=== PATIENT | female | born 1950 | race Caucasian/White ===

== ENCOUNTER 2019-12-27 10:42 | Emergency (ER) | payer MEDICARE, OTHER ==
[2019-12-27] MEDS ORDERED: Sodium Chloride 0.9% 1,000 ML IV ONE (11:25)
[2019-12-27] MEDS ORDERED: Ketorolac 30 MG/ML SDV IVPUSH ONE (11:25)
[2019-12-27] MEDS: Sodium Chloride 0.9% 10 ML Syringe FLUSH PRN ×2 (11:31→12:10)
--- NOTE | 2019-12-27 11:31 | EDM.PDOC ---
ED HPI GENERAL MEDICAL PROBLEM - General Chief Complaint: Abdominal Pain Stated Complaint: ABDOMINAL PAIN,FEVER Time Seen by Provider: 12/27/19 11:20 Source of Information: Reports: Patient History Limitations: Reports: No Limitations - History of Present Illness INITIAL COMMENTS - FREE TEXT/NARRATIVE: Nancie is a 69 year old female, presents to the ED with progressive lower a bdominal pain. Patient reports lower mid to left abdominal pain, nausea, which that has resolved. Pain improved with Aleve, worse when lying on her side. Patient also endorses a fever, has not taken anything for pain/fever today. Patient denies any urinary symptoms, does complain of lower back pain. Patient denies any hx of this in the past. Has had appendectomy. Hx of colonoscopies, states last one looked so good she just did the cologaurd. Denies any known hx of diverticulosis. Patient denies any blood in stool however stools have had more gas and mucus. Onset: Gradual Duration: Day(s): (3) Abdominal Pain Score (Numeric/FACES): 2 - Related Data Allergies Allergy/AdvReac Type Severity Reaction Status Date / Time Sulfa (Sulfonamide Allergy Hives Verified 12/27/19 11:08 Antibiotics) bacitracin AdvReac Other Verified 12/27/19 11:08 Home Meds: Home Meds Calcium Carbonate [Calcium] 1 tab PO DAILY 12/27/19 [History] Fexofenadine [Natacha] 0 mg PO DAILY 12/27/19 [History] Fluticasone Furoate [Flonase Sensimist] 2 spray RAHEEM DAILY 12/27/19 [History] Ketotifen Fumarate [Zaditor] 1 drop EYEBOTH DAILY 12/27/19 [History] Multivitamin [Multivitamins] 1 cap PO DAILY 12/27/19 [History] Past Medical History HEENT History: Reports: Cataract Respiratory History: Reports: Asthma RESPIRATORY SUPPORT TECHNICIAN History: Reports: - Past Surgical History HEENT Surgical History: Reports: Cataract Surgery, Tonsillectomy GI Surgical History: Reports: Appendectomy Social & Family History - Tobacco Use Smoking Status *Q: Never Smoker - Caffeine Use Caffeine Use: Reports: Coffee - Alcohol Use Days Per Week of Alcohol Use: 7 Number of Drinks Per Day: 2 Total Drinks Per Week: 14 - Recreational Drug Use Recreational Drug Use: No ED ROS GENERAL - Review of Systems Review Of Systems: Comprehensive ROS is negative, except as noted in HPI. ED EXAM, GI/ABD - Physical Exam Exam: See Below Exam Limited By: No Limitations General Appearance: Alert, WD/WN, No Apparent Distress Ears: Normal External Exam Nose: Normal Inspection Throat/Mouth: Normal Inspection Head: Atraumatic Neck: Normal Inspection, Supple Respiratory/Chest: No Respiratory Distress, Lungs Clear Cardiovascular: Normal Peripheral Pulses, Tachycardia GI/Abdominal Exam: Normal Bowel Sounds, Soft, Tender (lower mid and LLQ, no gaurding or rebound) Back Exam: Normal Inspection, Full Range of Motion Extremities: Normal Inspection Neurological: Alert, Oriented, CN II-XII Intact Psychiatric: Normal Affect, Normal Mood Skin Exam: Warm Lymphatic: No Adenopathy Course - Vital Signs Last Recorded V/S: Last Vital Signs Temp 37.3 C 12/27/19 11:11 Pulse 93 12/27/19 12:25 Resp 16 12/27/19 12:25 BP 155/72 H 12/27/19 12:25 Pulse Ox 97 12/27/19 12:25 Nancie is a 69 year old female who presents to the ED today with c/o lower mid and left abdominal pain. Please refer to HPI and focused exam. Concern given exam and history for acute diverticulitis. IV established. Blood work obtained including blood cultures and lactic acid secondary to tachycardia and reported fever. White count returns elevated at 15.1, lactic acid is 0.9, Sodium is 137, renal function stable, liver function stable, C reactive protein is elevated as well. Patient given IV Toradol here with improvement in her symptoms. CT scan of abdomen/pelvis obtained, confirms acute uncomplicated diverticulitis of the sigmoid colon. Incidentally noted is a 0.6 cm enhancing lesion of the uncinate process of the pancreas. Patient updated on CT scan and blood work, will discharged home on Cipro/Flagyl. Aleve/Ibuprofen/Tylenol for pain as needed per bottle instructions. [place] for severe pain, do not exceed more than 4,000 mg of Tylenol in a 24 hour period. Patient can follow up with PCP in one week, will need to follow up with regard to pancreatic lesion and colonoscopy recommended as well. Colace PRN. Reasons to return to the ED discussed, patient agreeable to plan of care and discharged in stable condition. - Orders/Labs/Meds Orders: Active Orders 24 hr Category Date Time Status Peripheral IV Care [RC] . DIRECTED Care 12/27/19 11:23 Active CULTURE BLOOD [BC] Urgent Lab 12/27/19 11:36 Received UA W/MICROSCOPIC [URIN] Stat Lab 12/27/19 11:25 Ordered Sodium Chloride 0.9% [Normal Saline] 76 ml Med 12/27/19 12:00 Active IV ASDIRECTED Sodium Chloride 0.9% [Saline Flush] Med 12/27/19 11:23 Active 10 ml FLUSH ASDIRECTED PRN Blood Culture x2 Reflex Set [OM.PC] Urgent Oth 12/27/19 11:23 Ordered Peripheral IV Insertion Adult [OM.PC] Routine Oth 12/27/19 11:23 Ordered Medication Orders Sodium Chloride (Normal Saline) 76 mls @ 3.5 mls/sec IV ASDIRECTED GERARD Last Admin: 12/27/19 12:10 Dose: 3.5 mls/sec Documented by: LEIF Sodium Chloride (Saline Flush) 10 ml FLUSH ASDIRECTED PRN PRN Reason: Keep Vein Open Last Admin: 12/27/19 12:10 Dose: 10 ml Documented by: Admin: 12/27/19 11:31 Dose: 10 ml Documented by: CORTEZ Labs: Laboratory Tests 12/27/19 12/27/19 12/27/19 Range/Units 11:36 11:36 11:36 WBC 15.1 H (4.5-11.0) K/uL RBC 4.43 (3.30-5.50) M/uL Hgb 13.7 (12.0-15.0) g/dL Hct 41.8 (36.0-48.0) % MCV 94 (80-98) fL MCH 31 (27-31) pg MCHC 33 (32-36) % Plt Count 140 L (150-400) K/uL Neut % (Auto) 85 H (36-66) % Lymph % (Auto) 6 L (24-44) % [place] % (Auto) 10 H (2-6) % Eos % (Auto) 0 L (2-4) % Baso % (Auto) 0 (0-1) % Sodium 137 L (140-148) mmol/L Potassium 3.7 (3.6-5.2) mmol/L Chloride 103 (100-108) mmol/L Carbon Dioxide 25 (21-32) mmol/L Anion Gap 12.7 (5.0-14.0) mmol/L BUN 13 (7-18) mg/dL Creatinine 0.5 L (0.6-1.0) mg/dL Est Cr Clr Drug Dosing 85.37 mL/min Estimated GFR (MDRD) > 60 (>60) Glucose 124 H (74-106) mg/dL Lactic Acid 0.9 (0.4-2.0) mmol/L Calcium 8.9 (8.5-10.1) mg/dL Total Bilirubin 1.1 H (0.2-1.0) mg/dL AST 14 L (15-37) U/L ALT 25 (12-78) U/L Alkaline Phosphatase 82 (46-116) U/L C-Reactive Protein (0.0-0.3) mg/dL Total Protein 7.1 (6.4-8.2) g/dL Albumin 3.7 (3.4-5.0) g/dL Globulin 3.4 (2.3-3.5) g/dL Albumin/Globulin Ratio 1.1 L (1.2-2.2) Lipase 54 L (73-393) U/L 12/27/19 Range/Units 11:36 WBC (4.5-11.0) K/uL RBC (3.30-5.50) M/uL Hgb (12.0-15.0) g/dL Hct (36.0-48.0) % MCV (80-98) fL MCH (27-31) pg MCHC (32-36) % Plt Count (150-400) K/uL Neut % (Auto) (36-66) % Lymph % (Auto) (24-44) % [place] % (Auto) (2-6) % Eos % (Auto) (2-4) % Baso % (Auto) (0-1) % Sodium (140-148) mmol/L Potassium (3.6-5.2) mmol/L Chloride (100-108) mmol/L Carbon Dioxide (21-32) mmol/L Anion Gap (5.0-14.0) mmol/L BUN (7-18) mg/dL Creatinine (0.6-1.0) mg/dL Est Cr Clr Drug Dosing mL/min Estimated GFR (MDRD) (>60) Glucose (74-106) mg/dL Lactic Acid (0.4-2.0) mmol/L Calcium (8.5-10.1) mg/dL Total Bilirubin (0.2-1.0) mg/dL AST (15-37) U/L ALT (12-78) U/L Alkaline Phosphatase (46-116) U/L C-Reactive Protein 8.42 H (0.0-0.3) mg/dL Total Protein (6.4-8.2) g/dL Albumin (3.4-5.0) g/dL Globulin (2.3-3.5) g/dL Albumin/Globulin Ratio (1.2-2.2) Lipase (73-393) U/L Meds: Medications Generic Name Dose Route Start Last Admin Trade Name Hodan PRN Reason Stop Dose Admin Sodium Chloride 76 mls @ 3.5 mls/sec 12/27/19 12:00 12/27/19 12:10 Normal Saline IV 3.5 mls/sec ASDIRECTED GERARD Administration Sodium Chloride 10 ml 12/27/19 11:23 12/27/19 12:10 Saline Flush FLUSH 10 ml ASDIRECTED PRN Administration Keep Vein Open Discontinued Medications Generic Name Dose Route Start Last Admin Trade Name Hodan PRN Reason Stop Dose Admin Sodium Chloride 1,000 mls @ 999 mls/hr 12/27/19 11:25 12/27/19 11:31 Normal Saline IV 12/27/19 12:25 999 mls/hr .BOLUS ONE Administration Iopamidol 120 ml 12/27/19 11:51 12/27/19 12:11 Isovue-300 (61%) IV 12/27/19 11:52 120 ml ONETIME ONE Administration Ketorolac Tromethamine 30 mg 12/27/19 11:25 12/27/19 11:36 Toradol IVPUSH 12/27/19 11:26 30 mg ONETIME ONE Administration Sodium Chloride 10 ml 12/27/19 11:51 Saline Flush FLUSH 12/27/19 11:52 ONETIME ONE Departure - Departure Time of Disposition: 13:15 Disposition: Home, Self-Care 01 Condition: Good Clinical Impression: Diverticulitis large intestine Qualifiers: Diverticulitis bleeding: without bleeding Diverticulitis complication: without perforation or abscess Qualified Code(s): K57.32 - Diverticulitis of large intestine without perforation or abscess without bleeding - Discharge Information Instructions: Diverticulitis Referrals: Magali Alvarez PA [Primary Care Provider] - Forms: ED Department Discharge Additional Instructions: Tylenol as needed for pain, 650 mg every 4 hours Aleve or Ibuprofen as needed, not both. [place], narcotic for severe pain, this has Tylenol in it, do not take more than 4,000 mg of Tylenol in a 24 hour period. Colace as needed for constipation. Start antibiotics today and take as directed, they may cause some diarrhea, I would recommend a good probiotic, ask the pharmacist to show you. Stay well hydrated. Follow up with your PCP in one week to discuss a follow up colonoscopy as well as to discuss recommended MRI of pancreas for the 0.6 cm lesion noted on CT scan today. Return here with any worsening symptoms or new concerns. Take care and I hope you feel better soon. Sepsis Event Note (ED) - Evaluation Sepsis Screening Result: Possible Sepsis Risk - Focused Exam Vital Signs: Vital Signs Temp Pulse Resp BP Pulse Ox 12/27/19 12:25 93 16 155/72 H 97 12/27/19 11:32 96 14 155/76 H 94 L 12/27/19 11:11 37.3 C 104 H 16 145/77 H 93 L 12/27/19 11:06 37.3 C 104 H 16 145/77 H 93 L - My Orders Last 24 Hours: My Active Orders 12/27/19 11:23 Peripheral IV Care [RC] . DIRECTED Sodium Chloride 0.9% [Saline Flush] 10 ml FLUSH ASDIRECTED PRN Blood Culture x2 Reflex Set [OM.PC] Urgent Peripheral IV Insertion Adult [OM.PC] Routine 12/27/19 11:25 UA W/MICROSCOPIC [URIN] Stat 12/27/19 11:36 CULTURE BLOOD [BC] Urgent 12/27/19 12:00 Sodium Chloride 0.9% [Normal Saline] 76 ml IV ASDIRECTED - Assessment/Plan Last 24 Hours: My Active Orders 12/27/19 11:23 Peripheral IV Care [RC] . DIRECTED Sodium Chloride 0.9% [Saline Flush] 10 ml FLUSH ASDIRECTED PRN Blood Culture x2 Reflex Set [OM.PC] Urgent Peripheral IV Insertion Adult [OM.PC] Routine 12/27/19 11:25 UA W/MICROSCOPIC [URIN] Stat 12/27/19 11:36 CULTURE BLOOD [BC] Urgent 12/27/19 12:00 Sodium Chloride 0.9% [Normal Saline] 76 ml IV ASDIRECTED
[2019-12-27] MEDS ORDERED: Iopamidol 612 MG/ML 500 ML Multipack Bottle IV ONE (11:51)
[2019-12-27] MEDS ORDERED: Sodium Chloride 0.9% 10 ML Syringe FLUSH ONE (11:51)
--- NOTE | 2019-12-27 12:33 | CRLCT ---
INDICATION: Lower abdominal pain, fever, question diverticulitis. TECHNIQUE: CT abdomen and pelvis acquired with 120 cc Isovue 370 IV contrast. Coronal and sagittal reconstructions. COMPARISON: None FINDINGS: Colonic diverticulosis. There is wall thickening, bowel wall edema, and marked pericolonic inflammatory fat stranding about the sigmoid colon in the posterior pelvis (series 2, image 108). Findings are compatible with acute diverticulitis. No focal fluid collection to suggest abscess. Small amount of free fluid in the pelvis is likely reactive. No intraperitoneal free air. Appendectomy. Small duodenal diverticulum. No evidence of bowel obstruction. The liver, gallbladder, spleen, and adrenal glands are negative. There is a 0.6 cm enhancing lesion in the uncinate process of the pancreas (series 2, image 56). No pancreatic duct dilation. Symmetric enhancement of the kidneys. No hydronephrosis. No obstructing urinary calculi. The bladder, uterus, and adnexa are unremarkable. Aortic vascular calcifications. No lymphadenopathy. Degenerative changes of the spine and pubic symphysis. Mild right basilar atelectasis. The lung bases are otherwise clear. IMPRESSION: 1. Acute uncomplicated diverticulitis of the sigmoid colon. There are marked pericolonic inflammatory changes. No evidence of perforation or abscess. 2. 0.6 cm enhancing lesion in the uncinate process of the pancreas could represent a small neuroendocrine tumor or hypervascular metastasis. Recommend further evaluation with pancreas protocol CT or MRI. Please note that all CT scans at this facility use dose modulation, iterative reconstruction, and/or weight-based dosing when appropriate to reduce radiation dose to as low as reasonably achievable. Dictated by Amrita Sarkar MD @ Dec 27 2019 12:18PM Signed by Dr. Amrita Sarkar @ Dec 27 2019 12:31PM
== END 2019-12-27 13:18 | disposition home or self-care (01) ==
LOC: JP.ED 10:42
DX: K57.32 Diverticulitis of large intestine without perforation or abscess without bleeding (principal); J45.909 Unspecified asthma, uncomplicated; Z88.2 Allergy status to sulfonamides; Z88.1 Allergy status to other antibiotic agents; Z79.899 Other long term (current) drug therapy
CPT/HCPCS: 36415; 74177; 80053; 83605; 83690; 85025; 86140; 87040; 96374; 99284; J1885; J7030; J7050; Q9967; 99283